=== PATIENT | female | born 1955 | race Caucasian/White ===

== ENCOUNTER → 2016-12-04 | Outpatient (CLI) | payer BC ==
[~2016-12-04] MED LIST: COLACE PO; KEFLEX PO; LASIX PO; LISINOPRIL PO; LORTAB 7.5-5001 TAB PO; NORCO 7.5/325 T1 TAB PO; PHENERGAN PO; POTASSIUM CHLO10 ME1 PO
--- NOTE | ~2016-12-04 | CT57 ---
[facility] A Service of [facility] & [facility] RADIOLOGY TEXT RESULTS PATIENT: JUDITH CUMMINGS LOCATION: [facility] : 57 UNIT #: [id number] AGE: [address]: Enrique Richardson MD SEX: F ORDER DR: [id number] [facility] [address] [place], [place] [address] [id number] O MR#: [id number] Acc #: [id number] NAME: JUDITH CUMMINGS : 1955 SEX: F STUDY DATE/TIME: 12/04/2016 15:11 UNIT: [facility] ROOM: STUDY DESCRIPTION: CT Chest Wo Cont Attending Physician: Enrique Richardson M.D. Referring Physician: Enrique Richardson M.D. Ordering Physician: Enrique Richardson M.D. Primary Care Physician: Primary Care Physician No MEDICAL IMAGING REPORT This report is preliminary unless electronic signature is present EXAM Chest CT without contrast. HISTORY Shortness breath for the past month. Previous history of lung cancer. TECHNIQUE Axial images were obtained without contrast and evaluated at lung and mediastinal windows. Comparison made to previous examination from 03/25/2012. This CT exam was performed with one or more of the following radiation dose reduction techniques: automatic exposure control, adjustment of mA and/or kV according to patient size, and iterative reconstruction. FINDINGS Chest images at mediastinal window show a moderate-sized pericardial effusion that is new since the previous examination. No pleural fluid is seen. There is no evidence of mediastinal or hilar adenopathy. Images at lung window show extensive consolidation and fibrosis in the right suprahilar region. The tissue in this area is denser than on the previous examination and slightly winter. The possibility of a local recurrent tumor should be considered. A PET scanning may be useful in further evaluating this area for local recurrence. The remaining lung tobias are clear. IMPRESSION 1. Increased soft tissue fullness and density in the right suprahilar area of consolidation suspicious for local recurrence. In addition there is a new pericardial effusion that potentially represent a malignant effusion. Consider PET CT scanning for further evaluation of this. 2. No new masses or infiltrates are seen elsewhere in the lungs. No STS. [facility] A Service of [facility] & [facility] RADIOLOGY TEXT RESULTS PATIENT: JUDITH CUMMINGS LOCATION: [facility] : 57 UNIT #: [id number] AGE: [address]: Enrique Richardson MD SEX: F ORDER DR: evidence of adenopathy in the mediastinum. Dictated by... Kirill Porter M.D. THIS IS AN ELECTRONICALLY VERIFIED REPORT Kirill Porter M.D. at 12/10/2016 4:52 PM RLF/brissa TD: 12/05/2016 18:51 JOB #: [id number] MEDICAL IMAGING REPORT Page 1 of 1 COPY
== END | disposition home or self-care (01) ==
LOC: CCAT 14:33
DX: C18.0 Malignant neoplasm of cecum (principal); C78.00 Secondary malignant neoplasm of unspecified lung; C78.7 Secondary malignant neoplasm of liver and intrahepatic bile duct; C64.9 Malignant neoplasm of unspecified kidney, except renal pelvis; J98.4 Other disorders of lung; J90 Pleural effusion, not elsewhere classified
CPT/HCPCS: 71250

== ENCOUNTER → 2016-12-23 | Outpatient (CLI) | payer BC ==
[~2016-12-23] VITALS: Ht 172.7 cm; Wt 72.7 kg
--- NOTE | ~2016-12-23 | CR71 ---
[facility] A Service of [facility] & [facility] RADIOLOGY TEXT RESULTS PATIENT: JUDITH CUMMINGS LOCATION: [facility] : 57 UNIT #: [id number] AGE: [address]: Enrique Richardson MD SEX: F ORDER DR: [id number] [facility] [address] [place], [place] [address] [id number] O MR#: [id number] Acc #: [id number] NAME: JUDITH CUMMINGS : 1955 SEX: F STUDY DATE/TIME: 12/23/2016 8:48 UNIT: [facility] ROOM: STUDY DESCRIPTION: CR Chest Single View Attending Physician: Enrique Richardson M.D. Ordering Physician: Judith Chandra M.D. Primary Care Physician: No Primary Care Physician MEDICAL IMAGING REPORT This report is preliminary unless electronic signature is present EXAM Chest x-ray 12/23/2016 INDICATION Shortness of air and hemoptysis status post right lung biopsy today. No right lung mass. FINDINGS AP upright view of the chest is compared with chest CT from 12/04/2016. There is volume loss in the right upper lobe. There is increased right upper lobe parenchymal density which probably reflects a small amount of post-biopsy hemorrhage. On the left side, there are infiltrates in the lung which are new from the CT. This may reflect some atelectasis as the patient was reportedly positioned left-side down for the biopsy today. The heart is enlarged. No definite pneumothorax. IMPRESSION No definitive pneumothorax. Volume loss in the right upper lobe is seen and there is probably some post-biopsy hemorrhage in the right upper lobe adjacent to the mass that was biopsied today. Infiltrates in the left lung may reflect atelectasis as the patient was left-side down for the procedure. Attention on followup recommended. Dictated by... Kirill Olivarez Jr., M.D. THIS IS AN ELECTRONICALLY VERIFIED REPORT Kirill Olivarez Jr., M.D. at 12/23/2016 3:50 PM EL/nanda TD: 12/23/2016 15:13 JOB #: [id number] [facility] A Service of [facility] & [facility] RADIOLOGY TEXT RESULTS PATIENT: JUDTIH CUMMINGS LOCATION: [facility] #: [id number] : 57 UNIT #: [id number] AGE: [address]: Enrique Richardson MD SEX: F ORDER DR: MEDICAL IMAGING REPORT Page 1 of 1 COPY
--- NOTE | ~2016-12-23 | CT134 ---
[facility] A Service of [facility] & [facility] RADIOLOGY TEXT RESULTS PATIENT: JUDITH RITTER LOCATION: [facility] : 57 UNIT #: [id number] AGE: [address]: Enrique Richardson MD SEX: F ORDER DR: [id number] [place] [id number]. [place], [place] [address] [id number] O MR#: [id number] Acc #: [id number] NAME: JUDITH RITTER : 1955 SEX: F STUDY DATE/TIME: 12/23/2016 8:02 UNIT: [facility] ROOM: STUDY DESCRIPTION: CT Guide Attending Physician: Enrique Richardson M.D. Ordering Physician: Enrique Richardson M.D. Primary Care Physician: No Primary Care Physician MEDICAL IMAGING REPORT This report is preliminary unless electronic signature is present EXAM CT guided lung biopsy. HISTORY Ms. Ritter is a 61-year-old lady who has had an enlarging area of consolidation within the right upper lobe. This has shown only low-level uptake, but given increase in size is certainly worrisome for malignancy. She has been referred for biopsy. PROCEDURE The risks, benefits, and alternatives to the procedure were explained to the patient, and signed informed consent was obtained. Patient was placed in the left lateral decubitus position. Preliminary CT scan was performed through the region of interest. An appropriate site overlying the patient's right upper lobe infiltrate was selected. The overlying skin was marked. Patient was prepped and draped in the usual sterile fashion. Time-out was performed as per protocol. Skin and subcutaneous tissues were anesthetized with buffered lidocaine. Anesthesia needle was left in place. Repeat CT scan confirmed appropriate trajectory of the needle and I exchanged for a 17-gauge coaxial needle, which was advanced into the lesion. Final CT scan confirmed appropriate positioning of the needle and, at this point, a single core sample was obtained using the 18-gauge BioPince biopsy gun. At this point, the patient developed hemoptysis. The needle was removed and manual pressure was applied until hemostasis was obtained. Final CT scan through the region of interest did not show any evidence of pneumothorax, although there was a small post-biopsy hemorrhage. Patient did receive moderate sedation consisting of 2 mg of Versed and 100 mcg of fentanyl. I supervised the IVR nurse and monitored the patient's vital signs for a total of 30 minutes of face to face time. This CT exam was performed with one or more of the following radiation STS. [facility] A Service of [facility] RADIOLOGY TEXT RESULTS PATIENT: JUDITH RITTER LOCATION: [facility] : 57 UNIT #: [id number] AGE: [address]: Enrique Richardson MD SEX: F ORDER DR: dose reduction techniques: automatic exposure control, adjustment of mA and/or kV according to patient size, and iterative reconstruction. IMPRESSION Technically successful CT-guided biopsy of the patient's right upper lobe mass. CT was used during the procedure and permanent images were saved. The procedure was complicated by some postbiopsy hemorrhage and hemoptysis subsequent to the biopsy. Patient was noted to have infiltrate within the right upper lobe likely reflecting hemorrhage as well as some her known cardiomegaly and vascular congestion. She did evolve decreased oxygen saturations into the low 80s, which subsequently responded to oxygen via Venturi mask and the patient subsequently weaned back down to room air. Dictated by... Judith Chandra M.D. THIS IS AN ELECTRONICALLY VERIFIED REPORT Judith Chandra M.D. at 12/24/2016 4:59 PM AFF/pc TD: 12/24/2016 11:57 JOB #: [id number] MEDICAL IMAGING REPORT Page 1 of 1 COPY
--- NOTE | ~2016-12-23 | CR71 ---
[facility] A Service of [facility] & [facility] RADIOLOGY TEXT RESULTS PATIENT: JUDITH CUMMINGS LOCATION: [facility] : 57 UNIT #: [id number] AGE: [address]: Enrique Richardson MD SEX: F ORDER DR: [id number] [facility] [address] [place], [place] [address] [id number] O MR#: [id number] Acc #: [id number] NAME: JUDITH CUMMINGS : 1955 SEX: F STUDY DATE/TIME: 12/23/2016 11:01 UNIT: [facility] ROOM: STUDY DESCRIPTION: CR Chest Single View Attending Physician: Enrique Richardson M.D. Ordering Physician: Judith Chandra M.D. MEDICAL IMAGING REPORT This report is preliminary unless electronic signature is present EXAM Chest x-ray 12/23 INDICATIONS Status post right lung biopsy today, 2-hour followup. FINDINGS AP upright view of the chest is compared with earlier this morning. Cardiomegaly stable. The appearance of the right upper lobe with volume loss is not appreciably changed. Once again, no pneumothorax is seen on either side of the chest. There is improved aeration of the left lung. IMPRESSION No pneumothorax. Stable appearance of the right upper lobe from earlier today. Improved aeration of the left lung relative to the earlier exam today with improved left lung atelectasis. Dictated by... Kirill Olivarez Jr., M.D. THIS IS AN ELECTRONICALLY VERIFIED REPORT Kirill Olivarez Jr., M.D. at 12/24/2016 8:28 AM EL/rachel TD: 12/23/2016 20:35 JOB #: [id number] MEDICAL IMAGING REPORT Page 1 of 1 COPY
[2016-12-23 06:34] LABS: HEMATOCRIT 41.1 % (35.0-45.0); HEMOGLOBIN 13.3 gm/dL (12.0-16.0); MEAN CELL VOLUME 86.9 FL (83-96); MEAN CORPUSCULAR HEMOGLOBIN 28.2 PG (28-34); MEAN CORPUSCULAR HGB CONC 32.5 g/dL (30-36); MEAN PLATELET VOLUME 8.7 FL (6.5-11.5); PARTIAL THROMBOPLASTIN TIME 27.2 SECONDS (23.5-31.3); PROTHROMBIN TIME (PATIENT) 11.1 SECONDS (10.0-11.7); RED BLOOD COUNT 4.73 X10e (3.90-5.30); RED CELL DISTRIBUTION WIDTH 13.8 % (11.0-15.5); WHITE BLOOD COUNT 6.4 X10e3 (4.0-10.5)
== END | disposition home or self-care (01) ==
LOC: CIVR 05:50
PROVIDERS: Internal Medicine Hematology & Oncology
DX: R91.8 Other nonspecific abnormal finding of lung field (principal); J84.10 Pulmonary fibrosis, unspecified; J95.830 Postprocedural hemorrhage of a respiratory system organ or structure following a respiratory system procedure; Y84.8 Other medical procedures as the cause of abnormal reaction of the patient, or of later complication, without mention of misadventure at the time of the procedure; R04.2 Hemoptysis; I51.7 Cardiomegaly; J98.11 Atelectasis; C18.0 Malignant neoplasm of cecum; C78.00 Secondary malignant neoplasm of unspecified lung; C78.7 Secondary malignant neoplasm of liver and intrahepatic bile duct; C64.9 Malignant neoplasm of unspecified kidney, except renal pelvis
CPT/HCPCS: 36415; 71010; 77012; 85027; 85610; 85730; 88305; J2250; J3010